=== PATIENT | female | born 1945 | race African-American/Black ===

== ENCOUNTER → 2018-07-20 | Outpatient (CLI) | payer OTHER | LOC: MRI 09:52 | DX: S93.412A Sprain of calcaneofibular ligament of left ankle, initial encounter (principal); S93.492A Sprain of other ligament of left ankle, initial encounter; M19.072 Primary osteoarthritis, left ankle and foot; X58.XXXA Exposure to other specified factors, initial encounter; Y93.89 Activity, other specified; Y92.89 Other specified places as the place of occurrence of the external cause; Y99.8 Other external cause status ==